=== PATIENT | female | born 1995 | race Caucasian/White ===

== ENCOUNTER 2023-09-01 08:28 | Inpatient (IN) | payer BC ==
[2023-09-06] MEDS ORDERED: CARBOPROST TROMETHAMINE 250 MCG/ML 1 ML AMP IM PRN (06:32)
[2023-09-06] MEDS ORDERED: TRANEXAMIC 1,000 MG/100ML-NACL 1,000 MG in EMPTY BAG 1 BAG IV PRN (06:32)
[2023-09-06] MEDS ORDERED: miSOPROStoL 200 MCG TAB PO PRN (06:32)
[2023-09-06] MEDS ORDERED: OXYTOCIN 10 UNIT/ML 1 ML VIAL IM PRN (06:32)
[2023-09-06] MEDS ORDERED: METHYLERGONOVINE 0.2 MG/ML 1 ML AMP IM PRN (06:32)
[2023-09-06] MEDS ORDERED: TERBUTALINE 1 MG/ML VIAL SQ PRN (06:32)
[2023-09-06] MEDS: LACTATED RINGERS 1,000 ML IV SCH (06:33)
[2023-09-06 06:48] VITALS: RESP 16
[2023-09-06] MEDS: OXYTOCIN 30 UNITS/500 ML NS 30 UNIT in SALINE 1 500ML.BAG IV SCH (07:33)
[2023-09-06 07:54] LABS: Basophils % (A) 0 %; Eosinophils # (A) 0.1 k/uL (0-0.7); Eosinophils % (A) 1 %; HCT 32.6 % (34.0-46.0); Lymphocytes # (A) 1.6 k/uL (1.0-4.8); Lymphocytes % (A) 15 %; MCH 30.8 pg (25.0-35.0); MCHC 33.7 g/dL (31.0-37.0); MCV 91.4 fL (80.0-100.0); Mean Platelet Volume 9.8; Monocytes # (A) 0.6 k/uL (0-1.0); Monocytes % (A) 6 %; Neutrophils # (A) 8.2 k/uL (1.3-7.7); Neutrophils % (A) 76 %; Platelet Count 232 k/uL (150-450); RBC 3.57 m/uL (3.80-5.40); RDW 13.8 % (11.5-15.5); WBC 10.7 k/uL (3.8-10.6)
--- NOTE | 2023-09-06 14:22 | P.PROBDLV ---
Vaginal Delivery Note - . Vaginal Delivery Note: 28-year-old G2, P0 that presented to labor and delivery at 40-5/7 weeks for induction of labor secondary to postdates and low amniotic fluid index at 8. Patient was admitted to labor and delivery and Pitocin induction of labor was begun. Amniotomy was performed and clear fluid was obtained. Patient progressed nicely through labor, declining analgesia. Patient progressed to complete and began pushing. She had a normal spontaneous vaginal delivery of a viable female at 1358, weight of 6 pounds 15 ounces. After 2-minute delay the umbilical cord was doubly clamped and cut. Spontaneous cry was noted. The placenta was delivered spontaneously intact with a three-vessel cord being noted. A degree vaginal laceration was appreciated. This was repaired in the usual fashion with 3-0 Rapide after instillation of lidocaine. Patient did have bilateral labial lacerations that were hemostatic. Uterus was noted to have a small gush therefore fundal massage was performed and the uterus firmed. On inspection of the patient's laceration hemostasis was appreciated after repair. All counts were to be correct x 2. Patient and infant tolerated delivery well and are resting comfortably
[2023-09-06] MEDS ORDERED: diphenhydrAMINE 50 MG/ML 1 ML VIAL IVP PRN ×2 (14:23)
[2023-09-06] MEDS ORDERED: ZOLPIDEM 5 MG TAB PO PRN (14:23)
[2023-09-06] MEDS ORDERED: BENZOCAINE/MENTHOL SPRAY 1 GM/SPRAY AEROSOL TOPICAL PRN (14:23)
[2023-09-06] MEDS ORDERED: diphenhydrAMINE 50 MG CAP PO PRN (14:23)
[2023-09-06] MEDS: LIDOCAINE 0.5% (PF) 5 MG/ML (50 ML SDV) SQ PRN (14:23)
[2023-09-06] MEDS ORDERED: LANOLIN CREAM 5 GM TUBE TOPICAL PRN (14:23)
[2023-09-06] MEDS ORDERED: SIMETHICONE 80 MG CHEWABLE PO PRN (14:23)
[2023-09-06] MEDS ORDERED: diphenhydrAMINE 25 MG CAP PO PRN (14:23)
[2023-09-06] MEDS ORDERED: HYDROCORTISONE 2.5% RECTAL CREAM 30 GM TUBE RECTAL PRN (14:23)
--- NOTE | 2023-09-06 14:23 | P.HPOB ---
History of Present Illness H&P Date: 09/06/23 Chief Complaint: Postdates , oligo hydramnios This is a 28-year-old G2, P0 at 40-5/7 weeks that presents to labor and delivery for induction of labor secondary to postdates and low amniotic fluid index of 8. Patient has been receiving routine care which been essentially uncomplicated. Patient underwent ultrasound examination in the office yesterday revealing an estimated weight of 7 pounds 1 ounce, amniotic fluid index of 8, vertex presentation. Ultrasound was done as she is postdates. Patient does note good movement had a reactive NST yesterday in the office. Patient does note an occasional contraction upon presentation to the hospital today. blood work this patient is a blood type of O-, rubella status today, hepatitis B surface is negative, HIV negative, RPR is nonreactive, aggravated strep culture is negative. Review of Systems Constitutional: Denies chills, Denies fatigue, Denies fever Ears, nose, mouth and throat: Denies headache Cardiovascular: Reports leg edema Respiratory: Denies dyspnea Gastrointestinal: Denies nausea, Denies vomiting Genitourinary: Reports Past Medical History History of Any Multi-Drug Resistant Organisms: None Reported Past Surgical History: No Surgical Hx Reported Past Anesthesia/Blood Transfusion Reactions: No Reported Reaction Smoking Status: Never smoker Past Drug Use History: None Reported Medications and Allergies Home Medications Medication Instructions Recorded Confirmed Type Cetirizine HCl [Zyrtec] 09/06/23 History Vit No.179/Iron/Folic 1 each PO 09/06/23 History [ Tablet] Allergies Allergy/AdvReac Type Severity Reaction Status Date / Time No Known Allergies Allergy Verified 09/06/23 06:29 Exam Osteopathic Statement: *. No significant issues noted on an osteopathic structural exam other than those noted in the History and Physical/Consult. Vital Signs Temp Pulse Resp Pulse Ox 09/06/23 06:26 97.7 F 120 H 16 99 Intake and Output 09/05/23 09/06/23 09/06/23 22:59 06:59 14:59 Other: # Voids 1 Weight 87.09 kg Targeted physical exam is performed this date General is well-nourished well- developed female in no acute distress, breathing is nonlabored, heart has a regular rate and rhythm, abdomen is gravid and appropriate for gestational age, and cervical exam she is 1-2/70/-3 station amniotomy was performed and clear fluid was obtained. At this time heart tones noted to be category 1 and she was efraín irregularly Results Result Diagrams: 09/06/23 06:35 Abnormal Lab Results - Last 24 Hours (Table) 09/06/23 Range/Units 06:35 WBC 10.7 H (3.8-10.6) k/uL RBC 3.57 L (3.80-5.40) m/uL Hgb 11.0 L (11.4-16.0) gm/dL Hct 32.6 L (34.0-46.0) % Neutrophils # 8.2 H (1.3-7.7) k/uL Assessment and Plan (1) Post-dates Current Visit: Yes Status: Acute Code(s): O48.0 - POST-TERM SNOMED Code(s): 93996541 (2) Oligohydramnios Current Visit: Yes Status: Acute Code(s): O41.00X0 - OLIGOHYDRAMNIOS, UNSP TRIMESTER, NOT APPLICABLE OR UNSP SNOMED Code(s): 33715475 Plan: 28-year-old G2, P0 at 40-5/7 weeks presents for induction of labor secondary to postdates and oligohydramnios. Patient is admitted and Pitocin induction of labor was begun. Amniotomy was performed and clear fluid was obtained. Options for analgesia are discussed including Nubain, nitrous, epidural. Patient will consider.
[2023-09-06] MEDS: ACETAMINOPHEN TAB 325 MG TAB PO PRN (15:24)
[2023-09-06] MEDS: IBUPROFEN 600 MG TAB PO SCH (20:34)
[2023-09-07] MEDS: SENNOSIDES-DOCUSATE SODIUM 1 EACH TAB PO SCH (01:35)
--- NOTE | 2023-09-07 10:03 | P.DS ---
Providers Date of admission: 09/06/23 06:06 Expected date of discharge: 09/07/23 Attending physician: Sandra Garcia Primary care physician: Stated None - Discharge Diagnosis(es) (1) Post-dates Current Visit: Yes Status: Acute (2) Oligohydramnios Current Visit: Yes Status: Acute (3) Status post vaginal delivery Current Visit: Yes Status: Acute (4) Obstetrical laceration, second degree Current Visit: Yes Status: Acute Hospital Course: 28-year-old G2 now P1011 presented to labor and delivery at 40-5/7 weeks for induction of labor. Patient been receiving routine care which had been essentially uncomplicated. Patient did have an ultrasound prior to admission revealing low amniotic fluid index of 8. Patient was counseled on findings and need for induction of labor. Patient did agree. Patient was admitted and Pitocin induction of labor was begun. Amniotomy was performed and clear fluid was obtained. Patient made good progress through labor. Patient progressed to complete dilation and began pushing. Patient had a normal spontaneous vaginal delivery of a viable female at 1358, weight of 6 pounds 15 ounces, Apgars of 9 and 9 at 1 and 5 minutes respectively. Patient did sustain a second-degree midline vaginal laceration which was repaired in the usual fashion with 3-0 Rapide after instillation of lidocaine. Patient is doing well on this day #1. She is ambulating and voiding without difficulty. She is tolerating a regular diet without nausea or vomiting. States her pain is well-controlled. She would like discharge home in 24 hours if possible. Patient Condition at Discharge: Good Plan - Discharge Summary New Discharge Prescriptions: No Action Vit No.179/Iron/Folic [ Tablet] 1 each PO Cetirizine HCl [Zyrtec] Discharge Medication List Cetirizine HCl [Zyrtec] 09/06/23 [History] Vit No.179/Iron/Folic [ Tablet] 1 each PO 09/06/23 [History] Follow up Appointment(s)/Referral(s): Sandra Garcia DO [Doctor of Osteopathic Medicine] - 6 Weeks Patient Instructions/Handouts: Vaginal Delivery (DC), Vaginal Delivery (GEN) Activity/Diet/Wound Care/Special Instructions: No intercourse, tampons or douching. No heavy lifting greater than a gallon of milk. No driving for two weeks. Call with any fever, shakes or chills, with any pain not alleviated by over the counter meds, or with any quesions or concerns. Discharge Disposition: HOME SELF-CARE
[2023-09-07 17:28] VITALS: BP 119/79; PULSE 83; TEMP 97.8
== END 2023-09-07 18:15 | disposition home or self-care (01) | DRG 807 ==
LOC: 4FBP 09-06 06:06
PROVIDERS: ADMIT Obstetrics & Gynecology Obstetrics; ATTEND Obstetrics & Gynecology Obstetrics
PROC: 10E0XZZ Delivery of Products of Conception, External Approach (ICD-10-PCS; principal; 2023-09-06)
PROC: 0KQM0ZZ Repair Perineum Muscle, Open Approach (ICD-10-PCS; 2023-09-06)
PROC: 10907ZC Drainage of Amniotic Fluid, Therapeutic from Products of Conception, Via Natural or Artificial Opening (ICD-10-PCS; 2023-09-06)
PROC: 3E033VJ Introduction of Other Hormone into Peripheral Vein, Percutaneous Approach (ICD-10-PCS; 2023-09-06)
DX: O41.03X0 Oligohydramnios, third trimester, not applicable or unspecified (principal); Z37.0 Single live birth; O48.0 Post-term pregnancy; O70.1 Second degree perineal laceration during delivery; Z3A.40 40 weeks gestation of pregnancy
CPT/HCPCS: 85025; 86850; 86900; 86901

== ENCOUNTER 2025-02-15 21:55 | Inpatient (IN) | payer BC ==
[2025-02-15] MEDS ORDERED: LIDOCAINE 0.5% (PF) 5 MG/ML (50 ML SDV) SQ PRN (22:50)
[2025-02-15] MEDS ORDERED: OXYTOCIN 10 UNIT/ML 1 ML VIAL IM PRN (22:50)
[2025-02-15] MEDS ORDERED: TERBUTALINE 1 MG/ML VIAL SQ PRN (22:50)
[2025-02-15] MEDS ORDERED: TRANEXAMIC 1,000 MG/100ML-NACL 1,000 MG in EMPTY BAG 1 BAG IV PRN (22:50)
[2025-02-15] MEDS ORDERED: CARBOPROST TROMETHAMINE 250 MCG/ML 1 ML AMP IM PRN (22:50)
[2025-02-15] MEDS ORDERED: METHYLERGONOVINE 0.2 MG/ML 1 ML AMP IM PRN (22:50)
[2025-02-15 23:24] LABS: Basophils # (A) 0.02 10*3/uL (0.00-0.10); Basophils % (A) 0.2 %; Eosinophils # (A) 0.01 10*3/uL (0.04-0.35); Eosinophils % (A) 0.1 %; HCT 33.0 % (37.2-46.3); HGB 10.7 g/dL (12.0-15.0); Lymphocytes # (A) 1.65 10*3/uL (0.90-5.00); Lymphocytes % (A) 12.7 %; MCH 27.6 pg (27.0-32.0); MCHC 32.4 g/dL (32.0-37.0); MCV 85.3 fL (80.0-97.0); Monocytes # (A) 0.73 10*3/uL (0.20-1.00); Monocytes % (A) 5.6 %; Neutrophils # (A) 10.48 10*3/uL (1.80-7.70); Neutrophils % (A) 80.9 %; Platelet Count 289 10*3/uL (140-440); RBC 3.87 10*6/uL (4.10-5.20); RDW 15.2 % (11.5-14.5); WBC 12.96 10*3/uL (4.50-10.00)
[2025-02-16] MEDS: NALBUPHINE 10 MG/ML (10 ML MDV) IV PRN (00:03)
[2025-02-16] MEDS: LACTATED RINGERS 1,000 ML IV SCH (00:04)
--- NOTE | 2025-02-16 01:23 | P.HPOB ---
History of Present Illness H&P Date: 02/16/25 Chief Complaint: IUP at 39 0/7 weeks, active labor This is a 30-year-old 3 para 1-0-1-1 at 39-0/7 weeks, estimated due date of 02/23 based on good dating parameters. Patient was admitted with complaints of regular painful contractions and noted to be 4+ centimeters. Patient denied loss of fluid. She did note good movement. Spontaneous rupture of membranes occurred at 0012 On blood work this patient has a blood type of O-, rubella status immune, hepatitis B surface engine negative, HIV negative, RPR nonreactive, hepatitis C nonreactive, group A strep culture negative. Review of Systems Constitutional: Denies chills, Denies fatigue, Denies fever Ears, nose, mouth and throat: Denies headache Cardiovascular: Reports leg edema Respiratory: Denies dyspnea Gastrointestinal: Denies nausea, Denies vomiting Genitourinary: Reports Past Medical History Additional Past Medical History / Comment(s): hypoglycemia History of Any Multi-Drug Resistant Organisms: None Reported Past Surgical History: No Surgical Hx Reported Past Anesthesia/Blood Transfusion Reactions: No Reported Reaction Smoking Status: Never smoker Past Drug Use History: None Reported - Past Family History Mother Family Medical History: No Reported History Medications and Allergies Home Medications Medication Instructions Recorded Confirmed Type Vit No.179/Iron/Folic 1 tab PO DAILY 09/06/23 02/15/25 History [ Tablet] Allergies Allergy/AdvReac Type Severity Reaction Status Date / Time No Known Allergies Allergy Verified 02/15/25 21:59 Exam Osteopathic Statement: *. No significant issues noted on an osteopathic structural exam other than those noted in the History and Physical/Consult. Vital Signs Temp Pulse Resp BP Pulse Ox 02/15/25 22:50 98.3 F 75 16 135/80 100 02/15/25 21:58 98.3 F 75 16 135/80 100 Intake and Output 02/15/25 02/15/25 02/16/25 14:59 22:59 06:59 Other: Weight 89.811 kg On targeted physical exam this is a well-nourished well-developed female and active labor, abdomen is noted to be gravid, upon entry of the room head is noted to be delivering, heart tones were noted to be category 1 at the time Results Result Diagrams: 02/15/25 23:11 Abnormal Lab Results - Last 24 Hours (Table) 02/15/25 Range/Units 23:11 WBC 12.96 H (4.50-10.00) 10*3/uL RBC 3.87 L (4.10-5.20) 10*6/uL Hgb 10.7 L (12.0-15.0) g/dL Hct 33.0 L (37.2-46.3) % Immature Gran # 0.07 H (0.00-0.04) 10*3/uL Neutrophils # 10.48 H (1.80-7.70) 10*3/uL Eosinophils # 0.01 L (0.04-0.35) 10*3/uL Assessment and Plan (1) Term Current Visit: Yes Status: Acute Code(s): Z34.90 - ENCNTR FOR SUPRVSN OF NORMAL , UNSP, UNSP TRIMESTER SNOMED Code(s): 04279478 Plan: Admit to labor and delivery for anticipated precipitous delivery
[2025-02-16] MEDS ORDERED: diphenhydrAMINE 25 MG CAP PO PRN (01:25)
[2025-02-16] MEDS ORDERED: HYDROCORTISONE 2.5% RECTAL CREAM 30 GM TUBE RECTAL PRN (01:25)
[2025-02-16] MEDS ORDERED: diphenhydrAMINE 50 MG/ML 1 ML VIAL IVP PRN ×2 (01:25)
[2025-02-16] MEDS ORDERED: ZOLPIDEM 5 MG TAB PO PRN (01:25)
[2025-02-16] MEDS ORDERED: LANOLIN CREAM 1 GM TUBE TOPICAL PRN (01:25)
[2025-02-16] MEDS ORDERED: SIMETHICONE 80 MG CHEWABLE PO PRN (01:25)
--- NOTE | 2025-02-16 01:25 | P.PROBDLV ---
Vaginal Delivery Note - . Vaginal Delivery Note: Date of service 02/16/2025 Findings viable male delivered at 0107, weight of 6 pounds 15 ounces 30-year-old -0-1-1 at 39-0/7 weeks presents in active labor. Patient noted spontaneous rupture of membranes at 0012, clear in nature. Patient made quick progress toward complete dilation with excellent maternal effort patient had a normal spontaneous vaginal delivery of a viable male at 0107, weight of 6 pounds 15 ounces, Apgars of 9 and 9 at 1 and 5 minutes respectively. After 2- minute delay the umbilical cord was doubly clamped and cut, was delivered spontaneously intact three-vessel cord being noted. No vaginal lacerations were appreciated. Spontaneous cry was noted at . All counts were noted be correct x 2. Patient and infant tolerated delivery well and a rest comfortably. Estimated blood loss 100 cc
[2025-02-16] MEDS: OXYTOCIN 30 UNITS/500 ML NS 30 UNIT in SALINE 1 500ML.BAG IV SCH (01:50)
[2025-02-16] MEDS: IBUPROFEN 800 MG TAB PO SCH (02:07)
[2025-02-16] MEDS: ACETAMINOPHEN TAB 500 MG TAB PO SCH (02:29)
[2025-02-16] MEDS: BENZOCAINE/MENTHOL SPRAY 1 GM/SPRAY AEROSOL TOPICAL PRN (02:29)
[2025-02-16] MEDS: PRENATAL VIT-IRON-FOLIC ACID 1 EACH TABLET PO SCH (09:30)
[2025-02-16] MEDS: SENNOSIDES-DOCUSATE SODIUM 1 EACH TAB PO SCH (09:30)
[2025-02-17] VITALS: RESP 16
--- NOTE | 2025-02-17 08:29 | P.DS ---
Providers Date of admission: 02/15/25 22:29 Expected date of discharge: 02/17/25 Attending physician: Sandra Garcia Primary care physician: Stated None - Discharge Diagnosis(es) (1) Term Current Visit: Yes Status: Acute (2) Status post vaginal delivery Current Visit: No Status: Acute Hospital Course: 30-year-old G 2 para 2-0-1-2 that presented yesterday on 02/16, 39-0/7 weeks in active labor. For full details of this patient please see the dictated history and physical patient had noted spontaneous rupture of membranes at 0012, patient progressed to complete began pushing and had a normal spontaneous vaginal delivery of a viable male at 0107, weight of 6 pounds 15 ounces, Apgars of 9 and 9 at 1 and 5 minutes respectively. No lacerations were appreciated after delivery. For full details on the delivery please see the dictated delivery summary Patient's course has been uneventful. On this day #1 she is ambulating and voiding without difficulty. She is tolerating a regular diet without nausea or vomiting. She states her pain is well-controlled. She would like discharge home later today. Patient Condition at Discharge: Good Plan - Discharge Summary New Discharge Prescriptions: No Action Vit No.179/Iron/Folic [ Tablet] 1 tab PO DAILY Discharge Medication List Vit No.179/Iron/Folic [ Tablet] 1 tab PO DAILY 09/06/23 [History] Follow up Appointment(s)/Referral(s): Sandra Garcia DO [Doctor of Osteopathic Medicine] - 04/02/25 11:15 am Patient Instructions/Handouts: Vaginal Delivery (DC), Vaginal Delivery (GEN) Activity/Diet/Wound Care/Special Instructions: No tub baths or intercourse until 6 weeks . [id number] ibuprofen 600 mg 3 tablets every 6 hours as needed for pain. Routine check at 6 weeks. Discharge Disposition: HOME SELF-CARE
[2025-02-17 09:57] VITALS: BP 121/75; PULSE 74; TEMP 98.5
== END 2025-02-17 12:50 | disposition home or self-care (01) | DRG 807 ==
LOC: FBPOP 21:55 → 4FBP 22:29
PROVIDERS: ADMIT Obstetrics & Gynecology Obstetrics; ATTEND Obstetrics & Gynecology Obstetrics
PROC: 10E0XZZ Delivery of Products of Conception, External Approach (ICD-10-PCS; principal; 2025-02-16)
DX: O62.3 Precipitate labor (principal); Z37.0 Single live birth; Z3A.39 39 weeks gestation of pregnancy
CPT/HCPCS: 59025; 85025; 86850; 86900; 86901; 99213